=== PATIENT | female | born 1935 | race Caucasian/White ===

== ENCOUNTER 2017-08-03 11:27 | Inpatient (IN) | payer MEDICARE ==
[~2017-08-03] VITALS: Ht 172.7 cm; Wt 98.4 kg
[~2017-08-03 11:27] MED LIST: AMIT25 PO; AMLO5 PO; ASPI81CH PO; ATOR40TA PO; ATORVASTATIN CA40 MG PO; BUME1 PO; Bumetanide0.5 MG PO; CITA20 PO; CLARITIN10 MG PO; Cephalexin500 MG PO; DONE10 PO; ENOX30I SC; FLUC100 PO; FOLI1 PO; Gemfibrozil600 MG PO; HYDCHL25 PO; HYDR1TAB94 PO; Klor-Con 1010 MEQ PO; LETR2.5 PO; LINZESS290 MCG PO; LISI5 PO; LOPE2C PO; LORA.5 PO; Lotrimin Ultra12 GM TOP; MAGIC MOUTHWASH PO; METF500 PO; METF500C PO; METO50 PO; METTREX2.5 PO; MONTELUKAST SOD10 MG PO; Methotrexate2.5 MG PO; NYST100000 PO; Norco 5-325 Ta1 EACH PO; ONDA4ODT SL; POTCHL20ER PO; SENN187 PO; Seroquel50 MG PO; Synthroid25 MCG PO; TIZANIDINE HCL2 MG PO; Tylenol325 MG PO; VITAMIN D32000 UNIT PO
[2017-08-03 13:00] LABS: BASOPHILS ABSOLUTE AUTO 0.08 K/mm3 (0.00-0.23); BASOPHILS PERCENT AUTO 1 % (0-2); EOSINOPHILS ABSOLUTE AUTO 0.18 K/mm3 (0.00-0.68); EOSINOPHILS PERCENT AUTO 2 % (0-6); IMMATURE GRAN ABSOLUTE AUTO 0.07 K/mm3 (0.00-0.10); IMMATURE GRAN PERCENT AUTO 1 % (0-1); LYMPHOCYTES ABSOLUTE AUTO 2.75 K/mm3 (0.84-5.20); LYMPHOCYTES PERCENT AUTO 25 % (21-46); MONOCYTES ABSOLUTE AUTO 0.73 K/mm3 (0.16-1.47); MONOCYTES PERCENT AUTO 7 % (4-13); Mean Corpuscular Volume 64 fL (80-100); Mean Platelet Volume 9.7 fL (9.1-12.4); NEUTROPHILS ABSOLUTE AUTO 7.26 K/mm3 (1.96-9.15); NEUTROPHILS PERCENT AUTO 66 % (41-73); Platelet Count 430 K/mm3 (150-400); RDW Coefficient Variation 22.5 % (11.7-14.2); Red Blood Cell Count 3.12 M/mm3 (3.80-5.20); White Blood Cell Count 11.07 K/mm3 (4.00-11.30)
[2017-08-03 13:16] LABS: Alanine Aminotransfer (ALT/SGP 11 U/L (12-78); Albumin, Blood 3.2 g/dL (3.4-5.0); Albumin/Globulin Ratio 0.8 (0.8-1.8); Alk Phos 98 U/L (50-136); Anion Gap 8 mmol/L (6-16); Aspartate Aminotrans (AST/SGOT 11 U/L (12-37); Bilirubin, Total 0.3 mg/dL (0.1-1.0); Blood Urea Nitrogen 22 mg/dL (8-24); Bun/Creatinine Ratio 25.7 (12.0-20.0); CO2, Blood 24 mmol/L (21-32); Calcium, Blood 8.3 mg/dL (8.5-10.1); Chloride, Blood 105 mmol/L (98-108); Creatinine, Blood 0.86 mg/dL (0.40-1.00); Globulin, Blood 3.9 g/dL (2.2-4.0); Glomerular Filtration Rate >60 (60-); Glucose, Blood 170 mg/dL (70-99); Potassium, Blood 4.5 mmol/L (3.5-5.5); Sodium, Blood 137 mmol/L (136-145); Total Protein, Blood 7.1 g/dL (6.4-8.2); Troponin I <0.015 ng/mL (0.000-0.040)
[2017-08-03] MEDS ORDERED: EXEM25 PO (15:11)
[2017-08-03] MEDS ORDERED: ONDA8 PO (15:17)
[2017-08-03 15:34] LABS: Percent Saturation 2.3 % (15.0-50.0)
[2017-08-03 23:56] LABS: Hematocrit 23.8 % (33.0-51.0); Hemoglobin 6.7 g/dL (11.5-16.0)
[2017-08-04 07:23] LABS: Hemoglobin 8.1 g/dL (11.5-16.0)
[2017-08-04 07:48] LABS: Alanine Aminotransfer (ALT/SGP 11 U/L (12-78); Albumin/Globulin Ratio 0.8 (0.8-1.8); Alk Phos 93 U/L (50-136); Anion Gap 7 mmol/L (6-16); Aspartate Aminotrans (AST/SGOT 8 U/L (12-37); Blood Urea Nitrogen 16 mg/dL (8-24); Bun/Creatinine Ratio 17.9 (12.0-20.0); CO2, Blood 29 mmol/L (21-32); Calcium, Blood 8.2 mg/dL (8.5-10.1); Chloride, Blood 100 mmol/L (98-108); Creatinine, Blood 0.89 mg/dL (0.40-1.00); Globulin, Blood 3.8 g/dL (2.2-4.0); Glomerular Filtration Rate >60 (60-); Glucose, Blood 105 mg/dL (70-99); Potassium, Blood 4.5 mmol/L (3.5-5.5); Sodium, Blood 136 mmol/L (136-145); Total Protein, Blood 6.8 g/dL (6.4-8.2)
[2017-08-04] MEDS ORDERED: DOCU100 PO (14:47)
[2017-08-04] MEDS ORDERED: Ferrous Sulfat325 M2 PO (14:48)
[2017-08-04 15:08] LABS: Hematocrit 28.7 % (33.0-51.0); Hemoglobin 8.4 g/dL (11.5-16.0)
== END 2017-08-04 16:09 | disposition home or self-care (01) | DRG 812 ==
LOC: ER 11:27 → PCU 13:41
PROVIDERS: Nurse Practitioner Family; Student in an Organized Health Care Education/Training Program
PROC: 30233N1 Transfusion of Nonautologous Red Blood Cells into Peripheral Vein, Percutaneous Approach (ICD-10-PCS; principal; 2017-08-03)
DX: D50.0 Iron deficiency anemia secondary to blood loss (chronic) (principal); R55 Syncope and collapse; C50.911 Malignant neoplasm of unspecified site of right female breast; Z17.0 Estrogen receptor positive status [ER+]; I10 Essential (primary) hypertension; E11.9 Type 2 diabetes mellitus without complications; Z79.4 Long term (current) use of insulin; J44.9 Chronic obstructive pulmonary disease, unspecified
CPT/HCPCS: 36415; 36430; 74177; 80053; 82272; 82728; 82947; 83540; 83550; 84484; 85014; 85018; 85025; 86850; 86900; 86901; 86920; 86923; 93005; 93010; 99285; J1940; J2916; J7030; P9016; Q9967

== ENCOUNTER → 2017-09-28 | Outpatient (CLI) | payer MEDICARE ==
[~2017-09-28] MED LIST changes: +DOCU100 PO; +EXEM25 PO; +Ferrous Sulfat325 M2 PO; +ONDA8 PO
[2017-09-28 11:22] LABS: Alanine Aminotransfer (ALT/SGP 18 U/L (12-78); Albumin, Blood 3.1 g/dL (3.4-5.0); Albumin/Globulin Ratio 1.1 (0.8-1.8); Alk Phos 74 U/L (50-136); Anion Gap 8 mmol/L (6-16); Aspartate Aminotrans (AST/SGOT 15 U/L (12-37); Bilirubin, Total 0.2 mg/dL (0.1-1.0); Blood Urea Nitrogen 15 mg/dL (8-24); Bun/Creatinine Ratio 20.7 (12.0-20.0); CO2, Blood 29 mmol/L (21-32); Calcium, Blood 8.7 mg/dL (8.5-10.1); Chloride, Blood 106 mmol/L (98-108); Creatinine, Blood 0.72 mg/dL (0.40-1.00); Globulin, Blood 2.9 g/dL (2.2-4.0); Glomerular Filtration Rate >60 (60-); Glucose, Blood 98 mg/dL (70-99); Potassium, Blood 4.1 mmol/L (3.5-5.5); Sodium, Blood 143 mmol/L (136-145)
[2017-10-04 10:10] LABS: CHOL/HDL RATIO 3.1; Cholesterol 107 mg/dL (50-200); HDL Cholesterol 34 mg/dL (>39); LDL/HDL RATIO 1.7; Low Density Lipoprotein Chol 57 mg/dL (0-110); Triglycerides 80 mg/dL (30-160); Very Low Density Lipoprot Chol 16 mg/dL (6-32)
== END | disposition home or self-care (01) ==
LOC: LAB HD 11:04 → LAB 11:04
PROVIDERS: Physician Assistant
DX: E11.40 Type 2 diabetes mellitus with diabetic neuropathy, unspecified (principal); E78.5 Hyperlipidemia, unspecified
CPT/HCPCS: 36415; 80053; 80061; 83036

== ENCOUNTER 2019-01-16 06:40 | Day surgery (SDC) | payer MEDICARE ==
[~2019-01-16] VITALS: Ht 172.7 cm; Wt 99.6 kg
[~2019-01-16 06:40] MED LIST changes: +ACET325 PO; +AMLO10 PO; +ANASTROZOLE5 GM PO; +ATOR80 PO; +Anti-Diarrheal2 MG PO; +DONEPEZIL HCL10 MG PO; +IRON150C PO; +LEVSOD25 PO; +Loratadine10 MG PO; +POTA10T PO; +QUET25 PO; +Triamcinolone A15 G3 TOP; +VITAMIN D32000 UNI2 PO; +Zanaflex4 M1 PO
--- NOTE | 2019-01-16 08:23 | NUR ---
History, Chart, Medications and Allergies reviewed before start of procedure.Patient confirms NPO status and agrees with scheduled surgery. Patient reports completing Chlorhexadine shower X2 prior to admission to hospital.Lungs clear T/O to Auscultation.PATIENT INTO SDS VIA PERSONAL W/C. WATCH AND RING REMOVED AND PLACED IN BELONGINGS BAG. Pre-Op teaching done. Pt verbalizes understanding. Patient States Post-Procedure ride home has been arranged WITH SON.
--- NOTE | 2019-01-16 08:28 | NUR ---
UNABLE TO VERIFY MEDS AND ALLERGIES DUE TO PATIENT UNABLE TO RECAL AND FACILITY DID NOT ANSWER WHEN CALLED TO VERIFY.
--- NOTE | 2019-01-16 09:07 | NUR ---
01/16/19 0907 Varghese Todd PT HAD RASH UNDER RIGHT BREAST AND IN RIGHT AXILLA
--- NOTE | 2019-01-16 12:08 | NUR ---
Discharge instructions reviewed with patient. Patient verbalizes understanding. Copy given to patient to take home. [place] [employer]RA[employer] INSTRUCTIONS TAUGHT AND CUP EMPTIED OF 10 CC BLOODY DRAINAGE, GAVE CUP TO GO HOME WITH TO MEASURE AND RECORD. BREAST BINDER IN PLACE, C/D/I. PT TOLERATED PO FLUIDS AND WAS GIVEN A PAIN PILL PER ORDER PRIOR TO DC HOME. PT SON IS HERE AND RIDE HOME. Discharged via wheelchair to private car for ride home.
== END 2019-01-16 12:11 | disposition home or self-care (01) ==
LOC: ORSCMMR 06:40 → ORD 09:30 → ORSCMMR 09:30
PROVIDERS: Surgery
PROC: 0HTT0ZZ Resection of Right Breast, Open Approach (ICD-10-PCS; principal; 2019-01-16 08:30)
PROC: 07B50ZX Excision of Right Axillary Lymphatic, Open Approach, Diagnostic (ICD-10-PCS; principal; 2019-01-16 08:30)
DX: C50.811 Malignant neoplasm of overlapping sites of right female breast (principal); Z17.0 Estrogen receptor positive status [ER+]; C77.3 Secondary and unspecified malignant neoplasm of axilla and upper limb lymph nodes; I10 Essential (primary) hypertension; J44.9 Chronic obstructive pulmonary disease, unspecified; Z87.891 Personal history of nicotine dependence; E11.9 Type 2 diabetes mellitus without complications; E03.9 Hypothyroidism, unspecified; Z99.81 Dependence on supplemental oxygen; Z79.899 Other long term (current) drug therapy
CPT/HCPCS: 82947; 88307; J1100; J2370; J2405; J2704; J3010; J7120

== ENCOUNTER → 2019-07-02 | Outpatient (CLI) | payer MEDICARE ==
[2019-07-02 20:01] LABS: Blood, Urine Neg (Neg); Glucose Qualitative, Urine Neg (Neg); Ketones, Urine 1+ (Neg); Leukocyte Esterase, Urine 1+ (Neg); Nitrite, Urine Neg (Neg); Protein, Urine 2+ (Neg); Urobilinogen, Urine NORM (Normal)
[2019-07-02 20:09] LABS: Appearance, Urine Hazy (Clear); Bilirubin, Urine 1+ (Neg); Color, Urine Yellow (P-Yellow)
[2019-07-02 20:10] LABS: Amorphous Light (0-Heavy); Bacteria Few /hpf; Mucus Mod (0-Heavy); Red Blood Cells, Urine Not Seen /hpf (0-2); Squamous Epithelial Cells Rare /hpf (Few)
== END | disposition home or self-care (01) ==
LOC: LAB 19:35 → LAB SHORT 19:35
PROVIDERS: Physician Assistant
DX: N39.0 Urinary tract infection, site not specified (principal)
CPT/HCPCS: 81001